=== PATIENT | female | born 1980 | race Caucasian/White ===

== ENCOUNTER 2023-12-25 10:07 | Emergency (ER) | payer SELFPAY ==
[~2023-12-25] VITALS: Ht 170.1 cm; Wt 63.5 kg
[2023-12-25] MEDS ORDERED: Doxycycline Hyclate 100 MG CAP PO ONE (10:35)
[2023-12-25] MEDS ORDERED: VIBRAMYCIN100 MG PO (10:46)
== END 2023-12-25 11:00 | disposition home or self-care (01) ==
LOC: ED 10:07
DX: A69.20 Lyme disease, unspecified (principal); Z88.5 Allergy status to narcotic agent; Z98.890 Other specified postprocedural states